=== PATIENT | female | born 1985 | race Caucasian/White ===

== ENCOUNTER 2018-07-24 00:39 | Inpatient (IN) | payer SELFPAY ==
[~2018-07-24] VITALS: Ht 182.9 cm; Wt 89.8 kg
[2018-07-24] VITALS (16 sets, daily range): BP systolic 93–130; BP diastolic 58–87
--- NOTE | 2018-07-24 00:56 | PHYS DOC ---
Adult General Chief Complaint Chief Complaint: OVERDOSE HPI HPI Patient is a 32 year old female who presents with AMS post drug overdose She called 911 after taking 20 600 mg Trileptal tablets this evening. She is unable to tell us when she took the pills. Currently she is minimally verbal. Found outside her home altered. Review of Systems Review of Systems Unable to perform secondary to AMS Constitutional: Denies fever or chills [] Eyes: Denies change in visual acuity, redness, or eye pain [] HENT: Denies nasal congestion or sore throat [] Respiratory: Denies cough or shortness of breath [] Cardiovascular: No additional information not addressed in HPI [] GI: Denies abdominal pain, nausea, vomiting, bloody stools or diarrhea [] : Denies dysuria or hematuria [] Musculoskeletal: Denies back pain or joint pain [] Integument: Denies rash or skin lesions [] Neurologic: Denies headache, focal weakness or sensory changes [] Endocrine: Denies polyuria or polydipsia [] All other systems were reviewed and found to be within normal limits, except as documented in this note. Current Medications Current Medications Current Medications Medications (Trade) Dose Ordered Sig/Nirmal Start Time Stop Time Status Last Admin Dose Admin Sodium Chloride 1,000 ml @ 1,000 mls/hr 1X ONCE 07/24/18 03:00 07/24/18 03:59 DC 07/24/18 02:54 1,000 MLS/HR Allergies Allergies Allergies Coded Allergies Type Severity Reaction Last Updated Verified Penicillins Allergy Intermediate RASH 07/24/18 Yes amoxicillin Allergy Intermediate RASH 07/24/18 Yes Physical Exam Physical Exam Constitutional: Well developed, well nourished, somnolent, no acute distress, non-toxic appearance. HENT: Normocephalic, atraumatic, bilateral external ears normal, oropharynx moist, no oral exudates, nose normal. Eyes: PERRLA, EOMI, conjunctiva normal, no discharge. Neck: Normal range of motion, no tenderness, supple, no stridor. Cardiovascular:Heart rate regular rhythm, no murmur Lungs & Thorax: Bilateral breath sounds clear to auscultation Abdomen: Bowel sounds normal, soft, no tenderness, no masses, no pulsatile masses. Skin: Warm, dry, no erythema, no rash. Back: No tenderness, no CVA tenderness. Extremities: No tenderness, no cyanosis, no clubbing, ROM intact, no edema. Neurologic: Somnolent, garble speech to painful stimuli,, normal motor function , normal sensory function, no focal deficits noted. Current Patient Data Vital Signs Vital Signs Date Time Temp Pulse Resp B/P (MAP) Pulse Ox O2 Delivery O2 Flow Rate FiO2 07/24/18 03:41 108 12 103/67 (79) 97 07/24/18 02:09 Room Air 07/24/18 00:39 97.8 97.8 Lab Values Laboratory Tests Test 07/24/18 00:45 White Blood Count 6.8 x10^3/uL (4.0-11.0) Red Blood Count 4.22 x10^6/uL (3.50-5.40) Hemoglobin 14.3 g/dL (12.0-15.5) Hematocrit 41.0 % (36.0-47.0) Mean Corpuscular Volume 97 fL (79-100) Mean Corpuscular Hemoglobin 34 pg (25-35) Mean Corpuscular Hemoglobin Concent 35 g/dL (31-37) Red Cell Distribution Width 12.6 % (11.5-14.5) Platelet Count 211 x10^3/uL (140-400) Neutrophils (%) (Auto) 62 % (31-73) Lymphocytes (%) (Auto) 30 % (24-48) Monocytes (%) (Auto) 6 % (0-9) Eosinophils (%) (Auto) 1 % (0-3) Basophils (%) (Auto) 0 % (0-3) Neutrophils # (Auto) 4.2 x10^3uL (1.8-7.7) Lymphocytes # (Auto) 2.1 x10^3/uL (1.0-4.8) Monocytes # (Auto) 0.4 x10^3/uL (0.0-1.1) Eosinophils # (Auto) 0.1 x10^3/uL (0.0-0.7) Basophils # (Auto) 0.0 x10^3/uL (0.0-0.2) Urine Collection Type Unknown Urine Color Yellow Urine Clarity Clear Urine pH 5.0 Urine Specific [place] 1.010 Urine Protein Negative mg/dL (NEG-TRACE) Urine Glucose (UA) Negative mg/dL (NEG) Urine Ketones (Stick) Negative mg/dL (NEG) Urine Blood Negative (NEG) Urine Nitrite Negative (NEG) Urine Bilirubin Negative (NEG) Urine Urobilinogen Dipstick 0.2 mg/dL (0.2 mg/dL) Urine Leukocyte Esterase Negative (NEG) Urine RBC 0 /HPF (0-2) Urine WBC 0 /HPF (0-4) Urine Squamous Epithelial Cells Few /LPF Urine Bacteria 0 /HPF (0-FEW) Sodium Level 143 mmol/L (136-145) Potassium Level 3.3 mmol/L (3.5-5.1) L Chloride Level 105 mmol/L (98-107) Carbon Dioxide Level 25 mmol/L (21-32) Anion Gap 13 (6-14) Blood Urea Nitrogen 19 mg/dL (7-20) Creatinine 1.1 mg/dL (0.6-1.0) H Estimated GFR (Cockcroft-Gault) 57.2 BUN/Creatinine Ratio 17 (6-20) Glucose Level 115 mg/dL (70-99) H Calcium Level 9.3 mg/dL (8.5-10.1) Total Bilirubin 0.3 mg/dL (0.2-1.0) Aspartate Amino Transferase (AST) 16 U/L (15-37) Alanine Aminotransferase (ALT) 24 U/L (14-59) Alkaline Phosphatase 77 U/L (46-116) Creatine Kinase 108 U/L (26-192) Troponin I Quantitative < 0.017 ng/mL (0.000-0.055) Total Protein 7.9 g/dL (6.4-8.2) Albumin 3.8 g/dL (3.4-5.0) Albumin/Globulin Ratio 0.9 (1.0-1.7) L Serum Test, Qualitative Negative (NEG) Salicylates Level 3.3 mg/dL (2.8-20.0) Salicylate Last Dose Date Unknown Salicylate Last Dose Time Unknown Urine Opiates Screen Neg (NEG) Urine Methadone Screen Neg (NEG) Acetaminophen Level < 2 mcg/ml (10-30) L Acetaminophen Last Dose Date Unknown Acetaminophen Last Dose Time Unknown Urine Barbiturates Neg (NEG) Urine Phencyclidine Screen Neg (NEG) Urine Amphetamine/Methamphetamine Neg (NEG) Urine Benzodiazepines Screen Neg (NEG) Urine Cocaine Screen Neg (NEG) Urine Cannabinoids Screen Neg (NEG) Ethyl Alcohol Level 49 mg/dL (0-10) H Urine Ethyl Alcohol Pos (NEG) Laboratory Tests 07/24/18 00:45 Laboratory Tests 07/24/18 00:[address] @ 106 with normal axis, normal intervals, with no ST-T wave changes suggestive of ischemia Radiology/Procedures Radiology/Procedures [id number] [place] [address] IMAGING REPORT Signed PATIENT: VIVIANA HUTTON ACCOUNT: [id number] : 1985 LOCATION: ER AGE: 32 SEX: F EXAM STATUS: REG ER ORD. PHYSICIAN: KATE POZO MD REASON: AMS PROCEDURE: CT HEAD WO CONTRAST CT head without contrast: Reason for examination: Altered mental status. Axial images were obtained through the brain. No contrast was administered. Exposure: One or more of the following individualized dose reduction techniques were utilized for this examination: 1. Automated exposure control 2. Adjustment of the mA and/or kV according to patient size 3. Use of iterative reconstruction technique. Ventricular systems are symmetric and not dilated. No midline shift is seen. There is no evidence of intracranial hemorrhage, infarct, mass or edema. No abnormalities are seen at the orbits. The paranasal sinuses and mastoid air cells are clear. No acute abnormality seen in the skull. IMPRESSION: No acute intracranial abnormality evident. Electronically signed by: Wen Ibarra MD (07/24/2018 2:42 AM) [facility] DICTATED and SIGNED BY: WEN IBARRA MD DATE: 07/24/18 0240 [id number] [place] [address] IMAGING REPORT Signed PATIENT: VIVIANA BROWN ACCOUNT: [id number] : 1985 LOCATION: [address] [place] [address] AGE: 32 SEX: F EXAM STATUS: ADM IN ORD. PHYSICIAN: KATE POZO MD REASON: AMS PROCEDURE: CHEST AP ONLY Portable chest, 07/24/2018: HISTORY: Altered mental status The heart size is normal. There is minimal linear atelectasis or scarring laterally in the right base. The lungs are otherwise clear. There is no evidence of pleural fluid. IMPRESSION: Minimal right basilar linear atelectasis or scarring. Electronically signed by: Tobias Garcia MD (07/24/2018 7:44 AM) [facility] DICTATED and SIGNED BY: TOBIAS GARCIA MD DATE: 07/24/18 0743 Course & Med Decision Making Course & Med Decision Making Pertinent Labs and Imaging studies reviewed. (See chart for details) Emergency Department course Patient presents altered after drug ingestion DDX-intoxication, hypoglycemia, seizure, infection, CVA Patient was stable in the ED with gradual improvement in sensorium, though still somnolent and confused in ED. Head CT scan was unremarkable. CXR unremarkable. Labs with mild hypokalemia. Alcohol level elevated. Case discussed with poison control who recommended Q 2 hour ECGs for 8 hours, cardiac monitoring and supportive care. ECG showed narrow complex. Troponin normal. PAT notified for drug over dose. Patient placed on 1:1 sitter. Patient admitted to Dr. Mccain 03:55 06:[address] Mccain who agreed with admission. Dragon Disclaimer Dragon Disclaimer This electronic medical record was generated, in whole or in part, using a voice recognition dictation system. Departure Departure Impression: Primary Impression: Drug overdose, intentional Additional Impressions: Alcohol use Acute encephalopathy Disposition: ADMITTED INPATIENT Admitting Physician: Ulises Mccain Condition: STABLE Scripts Buspirone Hcl (BUSPIRONE HCL) 5 Mg Tablet 1 TAB PO BID PRN for ANXIETY for 6 Days, #12 TAB 2 Refills Prov: DOUGLAS PATEL MD 07/25/18 Problem Qualifiers Primary Impression: Drug overdose, intentional Encounter type: initial encounter Qualified Codes: T50.902A - Poisoning by unspecified drugs, medicaments and biological substances, intentional self-harm , initial encounter KATE POZO MD Jul 24, 2018 00:56
[2018-07-24 01:16] LABS: BILIRUBIN,URINE NEGATIVE (NEG); CLARITY,URINE CLEAR; COLOR,URINE YELLOW; NITRITE,URINE NEGATIVE (NEG); PROTEIN,URINE NEGATIVE (NEG-TRACE); UROBILINOGEN,URINE 0.2 mg/dL (0.2 mg/dL)
[2018-07-24 01:20] LABS: BASO % 0 % (0-3); EOS # 0.1 x10^3/uL (0.0-0.7); EOS % 1 % (0-3); HEMOGLOBIN 14.3 g/dL (12.0-15.5); LYMPH # 2.1 x10^3/uL (1.0-4.8); LYMPH % 30 % (24-48); MEAN CORPUSCULAR HEMOGLOBIN 34 pg (25-35); MEAN CORPUSCULAR HGB CONC 35 g/dL (31-37); MEAN CORPUSCULAR VOLUME 97 fL (79-100); MONO # 0.4 x10^3/uL (0.0-1.1); MONO % 6 % (0-9); NEUT # 4.2 x10^3uL (1.8-7.7); NEUT % 62 % (31-73); PLATELET COUNT 211 x10^3/uL (140-400); RED BLOOD COUNT 4.22 x10^6/uL (3.50-5.40); RED CELL DISTRIBUTION WIDTH 12.6 % (11.5-14.5); WHITE BLOOD COUNT 6.8 x10^3/uL (4.0-11.0)
[2018-07-24 01:36] LABS: PREG TEST PT QUAL NEGATIVE (NEG)
[2018-07-24 01:37] LABS: ALBUMIN 3.8 g/dL (3.4-5.0); ALBUMIN/GLOBULIN RATIO 0.9 (1.0-1.7); CALCIUM 9.3 mg/dL (8.5-10.1); CREATININE 1.1 mg/dL (0.6-1.0); GFR 57.2; POTASSIUM 3.3 mmol/L (3.5-5.1); TOTAL BILIRUBIN 0.3 mg/dL (0.2-1.0); TOTAL PROTEIN 7.9 g/dL (6.4-8.2)
[2018-07-24 01:39] LABS: BACTERIA,URINE 0 /HPF (0-FEW); RBC,URINE 0 /HPF (0-2); SQUAMOUS EPITHELIAL CELL,UR FEW /LPF; WBC,URINE 0 /HPF (0-4)
[2018-07-24 01:40] LABS: BARBITURATES NEG (NEG); BENZODIAZEPINES NEG (NEG); CANNABINOIDS NEG (NEG); COCAINE NEG (NEG); METHADONE NEG (NEG); OPIATES NEG (NEG); PHENCYCLIDINE NEG (NEG)
[2018-07-24 01:43] LABS: ACETAMIN < 2 mcg/ml (10-30); ETHANOL 49 mg/dL (0-10); SALIC 3.3 mg/dL (2.8-20.0)
[2018-07-24 01:44] LABS: AMPHETAMINE/METHAMPHETAMINE NEG (NEG)
--- NOTE | 2018-07-24 02:45 | RAD ---
CT head without contrast: Reason for examination: Altered mental status. Axial images were obtained through the brain. No contrast was administered. Exposure: One or more of the following individualized dose reduction techniques were utilized for this examination: 1. Automated exposure control 2. Adjustment of the mA and/or kV according to patient size 3. Use of iterative reconstruction technique. Ventricular systems are symmetric and not dilated. No midline shift is seen. There is no evidence of intracranial hemorrhage, infarct, mass or edema. No abnormalities are seen at the orbits. The paranasal sinuses and mastoid air cells are clear. No acute abnormality seen in the skull. IMPRESSION: No acute intracranial abnormality evident. Electronically signed by: Wen Canela MD (07/24/2018 2:42 AM) [facility]
[2018-07-24] MEDS ORDERED: OXCA600T3 PO (02:50)
[2018-07-24] MEDS ORDERED: IV NORMAL SALINE 1000ML BAG 1,000 ML IV ONE (03:00)
[2018-07-24] MEDS: IV NORMAL SALINE 1000ML BAG 1,000 ML IV SCH ×4 (06:19→22:18)
--- NOTE | 2018-07-24 06:19 | EKG ---
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
[2018-07-24] MEDS ORDERED: diphenhydrAMINE 50 MG/ML VIAL ONE ×2 (06:43→07:00)
[2018-07-24] MEDS ORDERED: ONDANSETRON PF 4 MG/2 ML VIAL. ONE (06:43)
[2018-07-24] MEDS ORDERED: ONDANSETRON PF 4 MG/2 ML VIAL. IV PRN ×2 (06:45→08:00)
--- NOTE | 2018-07-24 06:59 | EKG ---
[facility] [address] [place] [address] Test Date: 2018-07-24 Test Time: 03:18:59 Pat Name: VIVIANA BROWN Department: Room: 112 1 Gender: F Complex Manager: : 1985 Requested By: KATE POZO Order Number: [id number] Reading MD: Danrde Linton MD Measurements Intervals [place] Rate: 103 P: 90 FL: 166 QRS: 77 QRSD: 78 T: 62 QT: 328 QTc: 431 Interpretive Statements SINUS TACHYCARDIA Electronically Signed On 07-28-2018 8:38:13 CDT by Dandre Linton MD
[2018-07-24] MEDS ORDERED: diphenhydrAMINE 50 MG/ML VIAL IVP ONE (07:30)
--- NOTE | 2018-07-24 07:47 | RAD ---
Portable chest, 07/24/2018: HISTORY: Altered mental status The heart size is normal. There is minimal linear atelectasis or scarring laterally in the right base. The lungs are otherwise clear. There is no evidence of pleural fluid. IMPRESSION: Minimal right basilar linear atelectasis or scarring. Electronically signed by: Tobias Garcia MD (07/24/2018 7:44 AM) [facility]
[2018-07-24] MEDS ORDERED: chlordiazePOXIDE HCL 25 MG CAPSULE PO PRN (08:00)
[2018-07-24] MEDS ORDERED: ACETAMINOPHEN 500 MG TABLET PO PRN (08:00)
[2018-07-24] MEDS ORDERED: IBUPROFEN 400 MG TABLET. PO PRN (08:00)
[2018-07-24] MEDS ORDERED: ONDANSETRON ODT 4 MG TAB.RAPDIS. PO PRN (08:00)
[2018-07-24] MEDS ORDERED: OXcarbazepine 300 MG TABLET PO SCH (09:00)
[2018-07-24] MEDS ORDERED: POTASSIUM CL 20MEQ-0.45% NACL 1,000 ML IV ONE (09:00)
--- NOTE | 2018-07-24 09:01 | PDOC1 ---
History and Physical Date of Admission Date of Admission DATE: 07/24/18 TIME: 08:56 Identification/Chief Complaint Chief Complaint altered mental status, minimally repot responsive but protecting airway Source Source: Caregiver, Chart review, Patient History of Present Illness History of Present Illness , 32-year-old female brought to the emergency room with altered mental status, somnolent. But she is protected her airway. Some reports that she OD'd on Trileptal - her home oxcarbazepine medication. Looking at her pill bottle, she supposed take 600 mg twice a day. There is a mention that she took 2600 mg which is about 4 pills. She is somnolent but able protect airway but not able to answer how much or when did this happen. Poison control was contacted advise EKG every 2 hours which they did and so far that seems okay - no QRS or QT prolongation. She did have some emesis in the ICU couple times. The rest of the vital signs and labs are okay. We can check for Trileptal levels as discussed with lab, go ahead and consult neurology regarding this. Otherwise stable able to protect airway, one-to-one, [facility] consult. Okay to transfer out of ICU> may eat once more awake. Discussed with ICU staff Past Medical History Psych: Depression Past Surgical History Past Surgical History: Other (unable to obtain) Family History Family History: Family History Unknown Social History Smoke: No ALCOHOL: none Drugs: None Current Problem List Problem List Problems Medical Problems: (1) Acute encephalopathy Status: Acute (2) Alcohol use Status: Acute (3) Drug overdose, intentional Status: Acute Current Medications Current Medications Current Medications Sodium Chloride 1,000 ml @ 1,000 mls/hr 1X ONCE IV Last administered on 07/24at 02:54; Start 07/24/18 at 03:00; Stop 07/24/18 at 03:59; Status DC Sodium Chloride 1,000 ml @ 200 mls/hr Q5H IV Last administered on 07/24/18at 06:19; Start 07/24/18 at 04:00; Stop 07/25/18 at 03:59 Ondansetron HCl (Zofran) 4 mg PRN Q6HRS PRN IV NAUSEA/VOMITING 1ST CHOICE Last administered on 07/24/18at 07:22; Start 07/24/18 at 06:45 Diphenhydramine HCl (Benadryl) 50 mg STK-MED ONCE .ROUTE ; Start 07/24/18 at 06 :43; Stop 07/24/18 at 06:44; Status DC Ondansetron HCl (Zofran) 4 mg STK-MED ONCE .ROUTE ; Start 07/24/18 at 06:43; Stop 07/24/18 at 06:44; Status DC Diphenhydramine HCl (Benadryl) 50 mg 1X ONCE IVP ; Start 07/24/18 at 07:30; Stop 07/24/18 at 07:31; Status DC Chlordiazepoxide (Librium) 25 mg PRN Q6HRS PRN PO ANXIETY / AGITATION; Start 07/24/18 at 08:00 Acetaminophen (Tylenol) 500 mg PRN Q6HRS PRN PO HEADACHE / TEMP; Start at 08:00 Ondansetron HCl (Zofran) 4 mg PRN Q6HRS PRN IV NAUSEA/VOMITING 1ST CHOICE; Start 07/24/18 at 08:00 Ondansetron HCl (Zofran Odt) 4 mg PRN Q6HRS PRN PO NAUSEA/VOMITING 1ST CHOICE; Start 07/24/18 at 08:00 Ibuprofen (Motrin) 400 mg PRN Q6HRS PRN PO INFLAMMATION; Start 07/24/18 at 08: 00 Oxcarbazepine (Trileptal) 600 mg BID PO ; Start 07/24/18 at 09:00 Diphenhydramine HCl (Benadryl) 50 mg STK-MED ONCE .ROUTE ; Start 07/24/18 at 07 :00; Stop 07/24/18 at 08:27; Status DC Active Scripts Active Reported Trileptal (Oxcarbazepine) 600 Mg Tablet 1 Tab PO BID Allergies Allergies: Coded Allergies: Penicillins (Verified Allergy, Intermediate, RASH, 07/24/18) amoxicillin (Verified Allergy, Intermediate, RASH, 07/24/18) ROS Review of System Somnolent unable to obtain Physical Exam General: No acute distress, Other (asleep - deep sleep) HEENT: Atraumatic, PERRLA, EOMI Lungs: Clear to auscultation, Normal air movement Heart: S1S2, RRR, no thrills, no rubs, no gallops, no murmurs Cardiovascular: S1, S2 Breasts: Normal, Rt breast nml w/o mass, Lt breast nml w/o mass, Nipples normal Abdomen: Normal bowel sounds, Soft, No tenderness, No hepatosplenomegaly, No masses Rectal Exam: not examined PELVIC: Nml ext genitalia Extremities: No clubbing, No cyanosis, No edema, Normal pulses, No tenderness/ swelling Skin: No rashes, No breakdown, No significant lesion Neuro: Normal gait, Normal speech, Strength at 5/5 X4 ext, Normal tone, Sensation intact, Cranial nerves 3-12 NL, Reflexes 2+ Vitals Vitals Vital Signs Date Time Temp Pulse Resp B/P (MAP) Pulse Ox O2 Delivery O2 Flow Rate FiO2 07/24/18 08:00 97.6 80 14 110/74 (86) 95 Room Air 97.6 Labs Labs Laboratory Tests Test 07/24/18 00:45 White Blood Count 6.8 x10^3/uL (4.0-11.0) Red Blood Count 4.22 x10^6/uL (3.50-5.40) Hemoglobin 14.3 g/dL (12.0-15.5) Hematocrit 41.0 % (36.0-47.0) Mean Corpuscular Volume 97 fL (79-100) Mean Corpuscular Hemoglobin 34 pg (25-35) Mean Corpuscular Hemoglobin Concent 35 g/dL (31-37) Red Cell Distribution Width 12.6 % (11.5-14.5) Platelet Count 211 x10^3/uL (140-400) Neutrophils (%) (Auto) 62 % (31-73) Lymphocytes (%) (Auto) 30 % (24-48) Monocytes (%) (Auto) 6 % (0-9) Eosinophils (%) (Auto) 1 % (0-3) Basophils (%) (Auto) 0 % (0-3) Neutrophils # (Auto) 4.2 x10^3uL (1.8-7.7) Lymphocytes # (Auto) 2.1 x10^3/uL (1.0-4.8) Monocytes # (Auto) 0.4 x10^3/uL (0.0-1.1) Eosinophils # (Auto) 0.1 x10^3/uL (0.0-0.7) Basophils # (Auto) 0.0 x10^3/uL (0.0-0.2) Urine Collection Type Unknown Urine Color Yellow Urine Clarity Clear Urine pH 5.0 Urine Specific [place] 1.010 Urine Protein Negative mg/dL (NEG-TRACE) Urine Glucose (UA) Negative mg/dL (NEG) Urine Ketones (Stick) Negative mg/dL (NEG) Urine Blood Negative (NEG) Urine Nitrite Negative (NEG) Urine Bilirubin Negative (NEG) Urine Urobilinogen Dipstick 0.2 mg/dL (0.2 mg/dL) Urine Leukocyte Esterase Negative (NEG) Urine RBC 0 /HPF (0-2) Urine WBC 0 /HPF (0-4) Urine Squamous Epithelial Cells Few /LPF Urine Bacteria 0 /HPF (0-FEW) Sodium Level 143 mmol/L (136-145) Potassium Level 3.3 mmol/L (3.5-5.1) Chloride Level 105 mmol/L (98-107) Carbon Dioxide Level 25 mmol/L (21-32) Anion Gap 13 (6-14) Blood Urea Nitrogen 19 mg/dL (7-20) Creatinine 1.1 mg/dL (0.6-1.0) Estimated GFR (Cockcroft-Gault) 57.2 BUN/Creatinine Ratio 17 (6-20) Glucose Level 115 mg/dL (70-99) Calcium Level 9.3 mg/dL (8.5-10.1) Total Bilirubin 0.3 mg/dL (0.2-1.0) Aspartate Amino Transf (AST/SGOT) 16 U/L (15-37) Alanine Aminotransferase (ALT/SGPT) 24 U/L (14-59) Alkaline Phosphatase 77 U/L (46-116) Creatine Kinase 108 U/L (26-192) Troponin I Quantitative < 0.017 ng/mL (0.000-0.055) Total Protein 7.9 g/dL (6.4-8.2) Albumin 3.8 g/dL (3.4-5.0) Albumin/Globulin Ratio 0.9 (1.0-1.7) Serum Test, Qualitative Negative (NEG) Salicylates Level 3.3 mg/dL (2.8-20.0) Salicylate Last Dose Date Unknown Salicylate Last Dose Time Unknown Urine Opiates Screen Neg (NEG) Urine Methadone Screen Neg (NEG) Acetaminophen Level < 2 mcg/ml (10-30) Acetaminophen Last Dose Date Unknown Acetaminophen Last Dose Time Unknown Urine Barbiturates Neg (NEG) Urine Phencyclidine Screen Neg (NEG) Urine Amphetamine/Methamphetamine Neg (NEG) Urine Benzodiazepines Screen Neg (NEG) Urine Cocaine Screen Neg (NEG) Urine Cannabinoids Screen Neg (NEG) Ethyl Alcohol Level 49 mg/dL (0-10) Urine Ethyl Alcohol Pos (NEG) Laboratory Tests Test 07/24/18 00:45 White Blood Count 6.8 x10^3/uL (4.0-11.0) Red Blood Count 4.22 x10^6/uL (3.50-5.40) Hemoglobin 14.3 g/dL (12.0-15.5) Hematocrit 41.0 % (36.0-47.0) Mean Corpuscular Volume 97 fL (79-100) Mean Corpuscular Hemoglobin 34 pg (25-35) Mean Corpuscular Hemoglobin Concent 35 g/dL (31-37) Red Cell Distribution Width 12.6 % (11.5-14.5) Platelet Count 211 x10^3/uL (140-400) Neutrophils (%) (Auto) 62 % (31-73) Lymphocytes (%) (Auto) 30 % (24-48) Monocytes (%) (Auto) 6 % (0-9) Eosinophils (%) (Auto) 1 % (0-3) Basophils (%) (Auto) 0 % (0-3) Neutrophils # (Auto) 4.2 x10^3uL (1.8-7.7) Lymphocytes # (Auto) 2.1 x10^3/uL (1.0-4.8) Monocytes # (Auto) 0.4 x10^3/uL (0.0-1.1) Eosinophils # (Auto) 0.1 x10^3/uL (0.0-0.7) Basophils # (Auto) 0.0 x10^3/uL (0.0-0.2) Urine Collection Type Unknown Urine Color Yellow Urine Clarity Clear Urine pH 5.0 Urine Specific [place] 1.010 Urine Protein Negative mg/dL (NEG-TRACE) Urine Glucose (UA) Negative mg/dL (NEG) Urine Ketones (Stick) Negative mg/dL (NEG) Urine Blood Negative (NEG) Urine Nitrite Negative (NEG) Urine Bilirubin Negative (NEG) Urine Urobilinogen Dipstick 0.2 mg/dL (0.2 mg/dL) Urine Leukocyte Esterase Negative (NEG) Urine RBC 0 /HPF (0-2) Urine WBC 0 /HPF (0-4) Urine Squamous Epithelial Cells Few /LPF Urine Bacteria 0 /HPF (0-FEW) Sodium Level 143 mmol/L (136-145) Potassium Level 3.3 mmol/L (3.5-5.1) Chloride Level 105 mmol/L (98-107) Carbon Dioxide Level 25 mmol/L (21-32) Anion Gap 13 (6-14) Blood Urea Nitrogen 19 mg/dL (7-20) Creatinine 1.1 mg/dL (0.6-1.0) Estimated GFR (Cockcroft-Gault) 57.2 BUN/Creatinine Ratio 17 (6-20) Glucose Level 115 mg/dL (70-99) Calcium Level 9.3 mg/dL (8.5-10.1) Total Bilirubin 0.3 mg/dL (0.2-1.0) Aspartate Amino Transf (AST/SGOT) 16 U/L (15-37) Alanine Aminotransferase (ALT/SGPT) 24 U/L (14-59) Alkaline Phosphatase 77 U/L (46-116) Creatine Kinase 108 U/L (26-192) Troponin I Quantitative < 0.017 ng/mL (0.000-0.055) Total Protein 7.9 g/dL (6.4-8.2) Albumin 3.8 g/dL (3.4-5.0) Albumin/Globulin Ratio 0.9 (1.0-1.7) Serum Test, Qualitative Negative (NEG) Salicylates Level 3.3 mg/dL (2.8-20.0) Salicylate Last Dose Date Unknown Salicylate Last Dose Time Unknown Urine Opiates Screen Neg (NEG) Urine Methadone Screen Neg (NEG) Acetaminophen Level < 2 mcg/ml (10-30) Acetaminophen Last Dose Date Unknown Acetaminophen Last Dose Time Unknown Urine Barbiturates Neg (NEG) Urine Phencyclidine Screen Neg (NEG) Urine Amphetamine/Methamphetamine Neg (NEG) Urine Benzodiazepines Screen Neg (NEG) Urine Cocaine Screen Neg (NEG) Urine Cannabinoids Screen Neg (NEG) Ethyl Alcohol Level 49 mg/dL (0-10) Urine Ethyl Alcohol Pos (NEG) VTE Prophylaxis Ordered VTE Prophylaxis Devices: Yes VTE Pharmacological Prophylaxi: Yes Assessment/Plan Assessment/Plan Oxcarbazepine (Trileptal) overdose with 4 pills seemingly Somnolence secondary to above Positive alcohol-49 levels Mild hypokalemia 3.3 AK I VMN, creatinine 1.1 Sinus tachycardia SIRS no sepsis, no organ dysfunction Plan: Supportive care Okay to transfer out of ICU with one-to-one Social work for [facility], 1;1 until then Check Trileptal levels Replace potassium IV for now since somnolent May have a diet once more awake Avoid nephrotoxins Discussed with PEDIATRIC NEPHROLOGIST CHAIM FLOWERS MD Jul 24, 2018 09:01
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
[2018-07-25 03:00] VITALS: BP 110/70
[2018-07-25 08:00] VITALS: BP 107/121
--- NOTE | 2018-07-25 09:04 | PDOC ---
PROGRESS NOTES Chief Complaint Chief Complaint Drug overdose - Trileptal History of Present Illness History of Present Illness 32-year-old female brought to the emergency room with altered mental status, somnolent. But she is protected her airway. Some reports that she OD'd on Trileptal - her home oxcarbazepine medication. Looking at her pill bottle, she supposed take 600 mg twice a day. There is a mention that she took 2600 mg which is about 4 pills. She is somnolent but able protect airway but not able to answer how much or when did this happen. Poison control was contacted advise EKG every 2 hours which they did and so far that seems okay - no QRS or QT prolongation. She did have some emesis in the ICU couple times. The rest of the vital signs and labs are okay. We can check for Trileptal levels as discussed with lab, go ahead and consult neurology regarding this. Otherwise stable able to protect airway, one-to-one, [facility] consult. Transfer out of ICU yesterday. She denies any SI today and has been seen by PAT team, has a f/u appt at [facility] on 07/31/18 at 1500. Have contracted for safety with her mother, Johanny, with whom she lives as well. A/P: Oxcarbazepine (Trileptal) overdose with 4 pills seemingly Somnolence secondary to above - resolved Positive alcohol intoxication - on admit 49 levels - resolved Mild hypokalemia 3.3 - replaced AK I VMN, creatinine 1.1 Sinus tachycardia SIRS no sepsis, no organ dysfunction Plan: Supportive care Okay to d/c one-to-one and d/c home with her mother Social work for [facility] Check Trileptal levels Replace potassium IV for now since somnolent May have a diet Avoid nephrotoxins Vitals Vitals Vital Signs Date Time Temp Pulse Resp B/P (MAP) Pulse Ox O2 Delivery O2 Flow Rate FiO2 07/25/18 03:00 97.6 75 17 110/70 (83) 95 Room Air 97.6 Physical Exam General: No acute distress, Other (asleep - deep sleep) Abdomen: Normal bowel sounds, Soft, No tenderness, No hepatosplenomegaly, No masses Extremities: No clubbing, No cyanosis, No edema, Normal pulses, No tenderness/ swelling Skin: No rashes, No breakdown, No significant lesion Assessment and Plan Assessmemt and Plan Problems Medical Problems: (1) Acute encephalopathy Status: Acute (2) Alcohol use Status: Acute (3) Drug overdose, intentional Status: Acute Comment Review of Relevant I have reviewed the following items jack (where applicable) has been applied. Labs Laboratory Tests Test 07/24/18 00:45 07/24/18 04:30 White Blood Count 6.8 x10^3/uL (4.0-11.0) Red Blood Count 4.22 x10^6/uL (3.50-5.40) Hemoglobin 14.3 g/dL (12.0-15.5) Hematocrit 41.0 % (36.0-47.0) Mean Corpuscular Volume 97 fL (79-100) Mean Corpuscular Hemoglobin 34 pg (25-35) Mean Corpuscular Hemoglobin Concent 35 g/dL (31-37) Red Cell Distribution Width 12.6 % (11.5-14.5) Platelet Count 211 x10^3/uL (140-400) Neutrophils (%) (Auto) 62 % (31-73) Lymphocytes (%) (Auto) 30 % (24-48) Monocytes (%) (Auto) 6 % (0-9) Eosinophils (%) (Auto) 1 % (0-3) Basophils (%) (Auto) 0 % (0-3) Neutrophils # (Auto) 4.2 x10^3uL (1.8-7.7) Lymphocytes # (Auto) 2.1 x10^3/uL (1.0-4.8) Monocytes # (Auto) 0.4 x10^3/uL (0.0-1.1) Eosinophils # (Auto) 0.1 x10^3/uL (0.0-0.7) Basophils # (Auto) 0.0 x10^3/uL (0.0-0.2) Urine Collection Type Unknown Urine Color Yellow Urine Clarity Clear Urine pH 5.0 Urine Specific [place] 1.010 Urine Protein Negative mg/dL (NEG-TRACE) Urine Glucose (UA) Negative mg/dL (NEG) Urine Ketones (Stick) Negative mg/dL (NEG) Urine Blood Negative (NEG) Urine Nitrite Negative (NEG) Urine Bilirubin Negative (NEG) Urine Urobilinogen Dipstick 0.2 mg/dL (0.2 mg/dL) Urine Leukocyte Esterase Negative (NEG) Urine RBC 0 /HPF (0-2) Urine WBC 0 /HPF (0-4) Urine Squamous Epithelial Cells Few /LPF Urine Bacteria 0 /HPF (0-FEW) Sodium Level 143 mmol/L (136-145) Potassium Level 3.3 mmol/L (3.5-5.1) Chloride Level 105 mmol/L (98-107) Carbon Dioxide Level 25 mmol/L (21-32) Anion Gap 13 (6-14) Blood Urea Nitrogen 19 mg/dL (7-20) Creatinine 1.1 mg/dL (0.6-1.0) Estimated GFR (Cockcroft-Gault) 57.2 BUN/Creatinine Ratio 17 (6-20) Glucose Level 115 mg/dL (70-99) Calcium Level 9.3 mg/dL (8.5-10.1) Total Bilirubin 0.3 mg/dL (0.2-1.0) Aspartate Amino Transf (AST/SGOT) 16 U/L (15-37) Alanine Aminotransferase (ALT/SGPT) 24 U/L (14-59) Alkaline Phosphatase 77 U/L (46-116) Creatine Kinase 108 U/L (26-192) Troponin I Quantitative < 0.017 ng/mL (0.000-0.055) Total Protein 7.9 g/dL (6.4-8.2) Albumin 3.8 g/dL (3.4-5.0) Albumin/Globulin Ratio 0.9 (1.0-1.7) Serum Test, Qualitative Negative (NEG) Salicylates Level 3.3 mg/dL (2.8-20.0) Salicylate Last Dose Date Unknown Salicylate Last Dose Time Unknown Urine Opiates Screen Neg (NEG) Urine Methadone Screen Neg (NEG) Acetaminophen Level < 2 mcg/ml (10-30) Acetaminophen Last Dose Date Unknown Acetaminophen Last Dose Time Unknown Urine Barbiturates Neg (NEG) Urine Phencyclidine Screen Neg (NEG) Urine Amphetamine/Methamphetamine Neg (NEG) Urine Benzodiazepines Screen Neg (NEG) Urine Cocaine Screen Neg (NEG) Urine Cannabinoids Screen Neg (NEG) Ethyl Alcohol Level 49 mg/dL (0-10) Urine Ethyl Alcohol Pos (NEG) Nasal Screen MRSA (PCR) Negative (Negative) Medications Current Medications Sodium Chloride 1,000 ml @ 1,000 mls/hr 1X ONCE IV Last administered on 07/24at 02:54; Start 07/24/18 at 03:00; Stop 07/24/18 at 03:59; Status DC Sodium Chloride 1,000 ml @ 150 mls/hr Q6H40M IV Last administered on at 22:18; Start 07/24/18 at 04:00; Stop 07/25/18 at 03:59; Status DC Ondansetron HCl (Zofran) 4 mg PRN Q6HRS PRN IV NAUSEA/VOMITING 1ST CHOICE Last administered on 07/24/18at 07:22; Start 07/24/18 at 06:45; Stop 07/24/18 at 09 :03; Status DC Diphenhydramine HCl (Benadryl) 50 mg STK-MED ONCE .ROUTE ; Start 07/24/18 at 06 :43; Stop 07/24/18 at 06:44; Status DC Ondansetron HCl (Zofran) 4 mg STK-MED ONCE .ROUTE ; Start 07/24/18 at 06:43; Stop 07/24/18 at 06:44; Status DC Diphenhydramine HCl (Benadryl) 50 mg 1X ONCE IVP ; Start 07/24/18 at 07:30; Stop 07/24/18 at 07:31; Status DC Chlordiazepoxide (Librium) 25 mg PRN Q6HRS PRN PO ANXIETY / AGITATION; Start 07/24/18 at 08:00 Acetaminophen (Tylenol) 500 mg PRN Q6HRS PRN PO HEADACHE / TEMP; Start at 08:00 Ondansetron HCl (Zofran) 4 mg PRN Q6HRS PRN IV NAUSEA/VOMITING 1ST CHOICE; Start 07/24/18 at 08:00 Ondansetron HCl (Zofran Odt) 4 mg PRN Q6HRS PRN PO NAUSEA/VOMITING 1ST CHOICE; Start 07/24/18 at 08:00 Ibuprofen (Motrin) 400 mg PRN Q6HRS PRN PO INFLAMMATION Last administered on at 07:21; Start 07/24/18 at 08:00 Oxcarbazepine (Trileptal) 600 mg BID PO ; Start 07/24/18 at 09:00; Stop at 09:00; Status DC Diphenhydramine HCl (Benadryl) 50 mg STK-MED ONCE .ROUTE ; Start 07/24/18 at 07 :00; Stop 07/24/18 at 08:27; Status DC Potassium Chloride/Sodium Chloride 1,000 ml @ 75 mls/hr 1X ONCE IV Last administered on 07/24/18at 09:11; Start 07/24/18 at 09:00; Stop 07/24/18 at 22 :19; Status DC Active Scripts Active Reported Trileptal (Oxcarbazepine) 600 Mg Tablet 1 Tab PO BID Vitals/I & O Vital Sign - Last 24 Hours 07/24/18 07/24/18 07/24/18 07/24/18 10:00 11:00 12:00 13:00 Temp 97.9 97.9 Pulse 82 81 82 96 Resp 12 12 18 16 B/P (MAP) 93/65 (74) 101/72 (82) 108/71 (83) 119/87 (98) Pulse Ox 99 99 99 97 O2 Delivery Room Air Room Air Room Air Room Air 07/24/18 07/24/18 07/24/18 07/24/18 14:00 16:00 20:00 20:30 Temp 98.4 98.7 98.4 98.7 Pulse 85 81 69 Resp 12 14 14 B/P (MAP) 94/58 (70) 108/78 (88) 123/74 (90) Pulse Ox 97 97 96 O2 Delivery Room Air Room Air Room Air Room Air 07/24/18 07/25/18 23:00 03:00 Temp 97.7 97.6 97.7 97.6 Pulse 80 75 Resp 14 17 B/P (MAP) 107/74 (85) 110/70 (83) Pulse Ox 95 95 O2 Delivery Room Air Room Air Intake and Output 07/24/18 07/24/18 07/25/18 15:00 23:00 07:00 Intake Total 2356 ml 240 ml Output Total 0 ml 1100 ml Balance 0 ml 1256 ml 240 ml DOUGLAS PATEL MD Jul 25, 2018 09:04
--- NOTE | 2018-07-25 10:38 | PDOC ---
PROGRESS NOTES Assessment Problems Medical Problems: (1) Acute encephalopathy Status: Acute (2) Alcohol use Status: Acute (3) Drug overdose, intentional Status: Acute Oxcarbazepine overdose, which she takes for bipolar disorder, she has no neurological issues. She is waking up. Plan I ordered some physical therapy. No additional neurological testing or treatment required, simply observe as the oxcarbazepine leaves her system. Holding off on repeat brain imaging as this ataxia is consistent with her intoxication and a final evidence of other cerebellar abnormality Subjective Still feels dizzy and off-balance Objective Vital Signs Date Time Temp Pulse Resp B/P (MAP) Pulse Ox O2 Delivery O2 Flow Rate FiO2 07/25/18 08:00 98.0 107 16 107/121 (116) 91 Room Air 98.0 Intake and Output 07/25/18 07:00 Intake Total 2596 ml Output Total 1100 ml Balance 1496 ml Intake Oral 240 ml IV Total 2356 ml Output Urine Total 1100 ml # Voids 1 PHYSICAL EXAM Alert. Oriented to time, place and person. PERRL. EOMI. CN: no focal findings. Muscle tone: normal. Muscle strength: 5/5 DTR: 2+ Plantar reflex: flexor Gait: ataxic. Sensory exam: no abnormal findings. No appendicular cerebellar signs elicited. Review of Relevant I have reviewed the following items jack (where applicable) has been applied. Labs Laboratory Tests Test 07/24/18 00:45 07/24/18 04:30 White Blood Count 6.8 x10^3/uL (4.0-11.0) Red Blood Count 4.22 x10^6/uL (3.50-5.40) Hemoglobin 14.3 g/dL (12.0-15.5) Hematocrit 41.0 % (36.0-47.0) Mean Corpuscular Volume 97 fL (79-100) Mean Corpuscular Hemoglobin 34 pg (25-35) Mean Corpuscular Hemoglobin Concent 35 g/dL (31-37) Red Cell Distribution Width 12.6 % (11.5-14.5) Platelet Count 211 x10^3/uL (140-400) Neutrophils (%) (Auto) 62 % (31-73) Lymphocytes (%) (Auto) 30 % (24-48) Monocytes (%) (Auto) 6 % (0-9) Eosinophils (%) (Auto) 1 % (0-3) Basophils (%) (Auto) 0 % (0-3) Neutrophils # (Auto) 4.2 x10^3uL (1.8-7.7) Lymphocytes # (Auto) 2.1 x10^3/uL (1.0-4.8) Monocytes # (Auto) 0.4 x10^3/uL (0.0-1.1) Eosinophils # (Auto) 0.1 x10^3/uL (0.0-0.7) Basophils # (Auto) 0.0 x10^3/uL (0.0-0.2) Urine Collection Type Unknown Urine Color Yellow Urine Clarity Clear Urine pH 5.0 Urine Specific [place] 1.010 Urine Protein Negative mg/dL (NEG-TRACE) Urine Glucose (UA) Negative mg/dL (NEG) Urine Ketones (Stick) Negative mg/dL (NEG) Urine Blood Negative (NEG) Urine Nitrite Negative (NEG) Urine Bilirubin Negative (NEG) Urine Urobilinogen Dipstick 0.2 mg/dL (0.2 mg/dL) Urine Leukocyte Esterase Negative (NEG) Urine RBC 0 /HPF (0-2) Urine WBC 0 /HPF (0-4) Urine Squamous Epithelial Cells Few /LPF Urine Bacteria 0 /HPF (0-FEW) Sodium Level 143 mmol/L (136-145) Potassium Level 3.3 mmol/L (3.5-5.1) Chloride Level 105 mmol/L (98-107) Carbon Dioxide Level 25 mmol/L (21-32) Anion Gap 13 (6-14) Blood Urea Nitrogen 19 mg/dL (7-20) Creatinine 1.1 mg/dL (0.6-1.0) Estimated GFR (Cockcroft-Gault) 57.2 BUN/Creatinine Ratio 17 (6-20) Glucose Level 115 mg/dL (70-99) Calcium Level 9.3 mg/dL (8.5-10.1) Total Bilirubin 0.3 mg/dL (0.2-1.0) Aspartate Amino Transf (AST/SGOT) 16 U/L (15-37) Alanine Aminotransferase (ALT/SGPT) 24 U/L (14-59) Alkaline Phosphatase 77 U/L (46-116) Creatine Kinase 108 U/L (26-192) Troponin I Quantitative < 0.017 ng/mL (0.000-0.055) Total Protein 7.9 g/dL (6.4-8.2) Albumin 3.8 g/dL (3.4-5.0) Albumin/Globulin Ratio 0.9 (1.0-1.7) Serum Test, Qualitative Negative (NEG) Salicylates Level 3.3 mg/dL (2.8-20.0) Salicylate Last Dose Date Unknown Salicylate Last Dose Time Unknown Urine Opiates Screen Neg (NEG) Urine Methadone Screen Neg (NEG) Acetaminophen Level < 2 mcg/ml (10-30) Acetaminophen Last Dose Date Unknown Acetaminophen Last Dose Time Unknown Urine Barbiturates Neg (NEG) Urine Phencyclidine Screen Neg (NEG) Urine Amphetamine/Methamphetamine Neg (NEG) Urine Benzodiazepines Screen Neg (NEG) Urine Cocaine Screen Neg (NEG) Urine Cannabinoids Screen Neg (NEG) Ethyl Alcohol Level 49 mg/dL (0-10) Urine Ethyl Alcohol Pos (NEG) Nasal Screen MRSA (PCR) Negative (Negative) Medications Current Medications Sodium Chloride 1,000 ml @ 1,000 mls/hr 1X ONCE IV Last administered on 07/24at 02:54; Start 07/24/18 at 03:00; Stop 07/24/18 at 03:59; Status DC Sodium Chloride 1,000 ml @ 150 mls/hr Q6H40M IV Last administered on at 22:18; Start 07/24/18 at 04:00; Stop 07/25/18 at 03:59; Status DC Ondansetron HCl (Zofran) 4 mg PRN Q6HRS PRN IV NAUSEA/VOMITING 1ST CHOICE Last administered on 07/24/18at 07:22; Start 07/24/18 at 06:45; Stop 07/24/18 at 09 :03; Status DC Diphenhydramine HCl (Benadryl) 50 mg STK-MED ONCE .ROUTE ; Start 07/24/18 at 06 :43; Stop 07/24/18 at 06:44; Status DC Ondansetron HCl (Zofran) 4 mg STK-MED ONCE .ROUTE ; Start 07/24/18 at 06:43; Stop 07/24/18 at 06:44; Status DC Diphenhydramine HCl (Benadryl) 50 mg 1X ONCE IVP ; Start 07/24/18 at 07:30; Stop 07/24/18 at 07:31; Status DC Chlordiazepoxide (Librium) 25 mg PRN Q6HRS PRN PO ANXIETY / AGITATION; Start 07/24/18 at 08:00 Acetaminophen (Tylenol) 500 mg PRN Q6HRS PRN PO HEADACHE / TEMP; Start at 08:00 Ondansetron HCl (Zofran) 4 mg PRN Q6HRS PRN IV NAUSEA/VOMITING 1ST CHOICE; Start 07/24/18 at 08:00 Ondansetron HCl (Zofran Odt) 4 mg PRN Q6HRS PRN PO NAUSEA/VOMITING 1ST CHOICE; Start 07/24/18 at 08:00 Ibuprofen (Motrin) 400 mg PRN Q6HRS PRN PO INFLAMMATION Last administered on at 07:21; Start 07/24/18 at 08:00 Oxcarbazepine (Trileptal) 600 mg BID PO ; Start 07/24/18 at 09:00; Stop at 09:00; Status DC Diphenhydramine HCl (Benadryl) 50 mg STK-MED ONCE .ROUTE ; Start 07/24/18 at 07 :00; Stop 07/24/18 at 08:27; Status DC Potassium Chloride/Sodium Chloride 1,000 ml @ 75 mls/hr 1X ONCE IV Last administered on 07/24/18at 09:11; Start 07/24/18 at 09:00; Stop 07/24/18 at 22 :19; Status DC Active Scripts Active Reported Trileptal (Oxcarbazepine) 600 Mg Tablet 1 Tab PO BID Vitals/I & O Vital Sign - Last 24 Hours 07/24/18 07/24/18 07/24/18 07/24/18 11:00 12:00 13:00 14:00 Temp 97.9 97.9 Pulse 81 82 96 85 Resp 12 18 16 12 B/P (MAP) 101/72 (82) 108/71 (83) 119/87 (98) 94/58 (70) Pulse Ox 99 99 97 97 O2 Delivery Room Air Room Air Room Air Room Air 07/24/18 07/24/18 07/24/18 07/24/18 16:00 20:00 20:30 23:00 Temp 98.4 98.7 97.7 98.4 98.7 97.7 Pulse 81 69 80 Resp 14 14 14 B/P (MAP) 108/78 (88) 123/74 (90) 107/74 (85) Pulse Ox 97 96 95 O2 Delivery Room Air Room Air Room Air Room Air 07/25/18 07/25/18 03:00 08:00 Temp 97.6 98.0 97.6 98.0 Pulse 75 107 Resp 17 16 B/P (MAP) 110/70 (83) 107/121 (116) Pulse Ox 95 91 O2 Delivery Room Air Room Air Intake and Output 07/24/18 07/24/18 07/25/18 15:00 23:00 07:00 Intake Total 2356 ml 240 ml Output Total 0 ml 1100 ml Balance 0 ml 1256 ml 240 ml SHAREE WILSON MD Jul 25, 2018 10:38
[2018-07-25 11:00] VITALS: BP 106/73
[2018-07-25 11:38] LABS: CALCIUM 8.6 mg/dL (8.5-10.1); GFR 63.9; MAGNESIUM 1.9 mg/dL (1.8-2.4); POTASSIUM 4.2 mmol/L (3.5-5.1)
--- NOTE | 2018-07-25 12:34 | PDOC3 ---
Discharge Summary Visit Information Date of Admission: Jul 24, 2018 Date of Discharge: Jul 25, 2018 Admitting Diagnosis: Overdose on trileptal Final Diagnosis Problems Medical Problems: (1) Acute encephalopathy Status: Acute (2) Alcohol use Status: Acute (3) Drug overdose, intentional Status: Acute Brief Hospital Course Allergies Allergies Coded Allergies Type Severity Reaction Last Updated Verified Penicillins Allergy Intermediate RASH 07/24/18 Yes amoxicillin Allergy Intermediate RASH 07/24/18 Yes Vital Signs Vital Signs Date Time Temp Pulse Resp B/P (MAP) Pulse Ox O2 Delivery O2 Flow Rate FiO2 07/25/18 11:00 97.5 83 16 106/73 (84) 95 Room Air 97.5 Lab Results Laboratory Tests Test 07/24/18 00:45 07/24/18 04:30 07/25/18 11:10 White Blood Count 6.8 x10^3/uL (4.0-11.0) Red Blood Count 4.22 x10^6/uL (3.50-5.40) Hemoglobin 14.3 g/dL (12.0-15.5) Hematocrit 41.0 % (36.0-47.0) Mean Corpuscular Volume 97 fL (79-100) Mean Corpuscular Hemoglobin 34 pg (25-35) Mean Corpuscular Hemoglobin Concent 35 g/dL (31-37) Red Cell Distribution Width 12.6 % (11.5-14.5) Platelet Count 211 x10^3/uL (140-400) Neutrophils (%) (Auto) 62 % (31-73) Lymphocytes (%) (Auto) 30 % (24-48) Monocytes (%) (Auto) 6 % (0-9) Eosinophils (%) (Auto) 1 % (0-3) Basophils (%) (Auto) 0 % (0-3) Neutrophils # (Auto) 4.2 x10^3uL (1.8-7.7) Lymphocytes # (Auto) 2.1 x10^3/uL (1.0-4.8) Monocytes # (Auto) 0.4 x10^3/uL (0.0-1.1) Eosinophils # (Auto) 0.1 x10^3/uL (0.0-0.7) Basophils # (Auto) 0.0 x10^3/uL (0.0-0.2) Urine Collection Type Unknown Urine Color Yellow Urine Clarity Clear Urine pH 5.0 Urine Specific [place] 1.010 Urine Protein Negative mg/dL (NEG-TRACE) Urine Glucose (UA) Negative mg/dL (NEG) Urine Ketones (Stick) Negative mg/dL (NEG) Urine Blood Negative (NEG) Urine Nitrite Negative (NEG) Urine Bilirubin Negative (NEG) Urine Urobilinogen Dipstick 0.2 mg/dL (0.2 mg/dL) Urine Leukocyte Esterase Negative (NEG) Urine RBC 0 /HPF (0-2) Urine WBC 0 /HPF (0-4) Urine Squamous Epithelial Cells Few /LPF Urine Bacteria 0 /HPF (0-FEW) Sodium Level 143 mmol/L (136-145) 143 mmol/L (136-145) Potassium Level 3.3 mmol/L (3.5-5.1) 4.2 mmol/L (3.5-5.1) Chloride Level 105 mmol/L (98-107) 106 mmol/L (98-107) Carbon Dioxide Level 25 mmol/L (21-32) 30 mmol/L (21-32) Anion Gap 13 (6-14) 7 (6-14) Blood Urea Nitrogen 19 mg/dL (7-20) 12 mg/dL (7-20) Creatinine 1.1 mg/dL (0.6-1.0) 1.0 mg/dL (0.6-1.0) Estimated GFR (Cockcroft-Gault) 57.2 63.9 BUN/Creatinine Ratio 17 (6-20) Glucose Level 115 mg/dL (70-99) 88 mg/dL (70-99) Calcium Level 9.3 mg/dL (8.5-10.1) 8.6 mg/dL (8.5-10.1) Total Bilirubin 0.3 mg/dL (0.2-1.0) Aspartate Amino Transf (AST/SGOT) 16 U/L (15-37) Alanine Aminotransferase (ALT/SGPT) 24 U/L (14-59) Alkaline Phosphatase 77 U/L (46-116) Creatine Kinase 108 U/L (26-192) Troponin I Quantitative < 0.017 ng/mL (0.000-0.055) Total Protein 7.9 g/dL (6.4-8.2) Albumin 3.8 g/dL (3.4-5.0) Albumin/Globulin Ratio 0.9 (1.0-1.7) Serum Test, Qualitative Negative (NEG) Salicylates Level 3.3 mg/dL (2.8-20.0) Salicylate Last Dose Date Unknown Salicylate Last Dose Time Unknown Urine Opiates Screen Neg (NEG) Urine Methadone Screen Neg (NEG) Acetaminophen Level < 2 mcg/ml (10-30) Acetaminophen Last Dose Date Unknown Acetaminophen Last Dose Time Unknown Urine Barbiturates Neg (NEG) Urine Phencyclidine Screen Neg (NEG) Urine Amphetamine/Methamphetamine Neg (NEG) Urine Benzodiazepines Screen Neg (NEG) Urine Cocaine Screen Neg (NEG) Urine Cannabinoids Screen Neg (NEG) Ethyl Alcohol Level 49 mg/dL (0-10) Urine Ethyl Alcohol Pos (NEG) Nasal Screen MRSA (PCR) Negative (Negative) Magnesium Level 1.9 mg/dL (1.8-2.4) Laboratory Tests Test 07/25/18 11:10 Sodium Level 143 mmol/L (136-145) Potassium Level 4.2 mmol/L (3.5-5.1) Chloride Level 106 mmol/L (98-107) Carbon Dioxide Level 30 mmol/L (21-32) Anion Gap 7 (6-14) Blood Urea Nitrogen 12 mg/dL (7-20) Creatinine 1.0 mg/dL (0.6-1.0) Estimated GFR (Cockcroft-Gault) 63.9 Glucose Level 88 mg/dL (70-99) Calcium Level 8.6 mg/dL (8.5-10.1) Magnesium Level 1.9 mg/dL (1.8-2.4) Brief Hospital Course 32-year-old female brought to the emergency room with altered mental status, somnolent. But she is protected her airway. Some reports that she OD'd on Trileptal - her home oxcarbazepine medication. Looking at her pill bottle, she supposed take 600 mg twice a day. There is a mention that she took 2600 mg which is about 4 pills. She is somnolent but able protect airway but not able to answer how much or when did this happen. Poison control was contacted advise EKG every 2 hours which they did and so far that seems okay - no QRS or QT prolongation. She did have some emesis in the ICU couple times. The rest of the vital signs and labs are okay. Consulted neurology regarding this OD, as she improved, ok for d/c. Otherwise stable able to protect airway, one-to-one, [facility] consulted, has f/u with . Transfer out of ICU yesterday Assessment/Plan Oxcarbazepine (Trileptal) overdose with 4 pills seemingly Somnolence secondary to above - resolved Positive alcohol intoxication - on admit49 levels - resolved Mild hypokalemia 3.3 - replaced and mag level normal [place] I VMN, creatinine 1.1 Sinus tachycardia SIRS no sepsis, no organ dysfunction Plan: Supportive care D/C today Social work for [facility]. Will f/u with [facility] on 07/31/18 at 1500 Check Trileptal levels Avoid nephrotoxins Contract for safety with her mother, Johanny Discharge Information Condition at Discharge: Improved Follow Up: Weeks (1) Disposition/Orders: D/C to Home Scheduled Oxcarbazepine (Trileptal) 600 Mg Tablet, 1 TAB PO BID, #60 Ref 1 (Reported) Entered as Reported by: KAELA MCCORD on 07/24/18 0250 Last Action: Converted on 07/24/18 0750 by DOUGLAS OLIVEIRA MD Jul 25, 2018 12:34
[2018-07-25] MEDS ORDERED: BUSP5TAB PO (12:35)
== END 2018-07-25 17:55 | disposition home or self-care (01) | DRG 917 ==
LOC: ER 00:39 → 1 WEST ICU 03:54 → 5 NORTH 20:24
PROVIDERS: ADMIT Internal Medicine; ATTEND Internal Medicine
DX: T42.1X2A Poisoning by iminostilbenes, intentional self-harm, initial encounter (principal); N17.0 Acute kidney failure with tubular necrosis; G93.40 Encephalopathy, unspecified; R65.10 Systemic inflammatory response syndrome (SIRS) of non-infectious origin without acute organ dysfunction; E87.6 Hypokalemia; F10.129 Alcohol abuse with intoxication, unspecified; F31.9 Bipolar disorder, unspecified; F41.9 Anxiety disorder, unspecified; G47.10 Hypersomnia, unspecified; Z82.49 Family history of ischemic heart disease and other diseases of the circulatory system; Y92.89 Other specified places as the place of occurrence of the external cause; Z88.0 Allergy status to penicillin; Z88.8 Allergy status to other drugs, medicaments and biological substances
CPT/HCPCS: 36415; 70450; 71045; 80048; 80053; 80183; 80307; 80329; 81001; 82550; 83735; 84484; 84703; 85025; 87641; 93005; 96360; G0480; G6039; J1200; J2405; J7030; 99285-25; G0479